=== PATIENT | female | born 1930 ===

== ENCOUNTER 2018-04-09 16:37 | Emergency (ER) | payer SELFPAY ==
[2018-04-09] MEDS ORDERED: DIPHTH,PERTUSS(ACELL),TET 0.5 ML DISP.SYRIN IM ONE (16:57)
--- NOTE | 2018-04-09 16:57 | PDOC ---
History of Present Illness - General History Source: Patient Exam Limitations: No Limitations <Deisy Locke - Last Filed: 04/09/18 16:52> - History of Present Illness Initial Comments: 04/09/18 16:57 Patient is an 87 female with PMHx of diabetes, HLD, hypothyroidism, CAD, who was BIBA and presents with right mojica laceration. Patient was at the [facility] movie theater with her senior group today. She states that as she was getting on the bus, she wasn't able to fully raise her right leg and scraped it, sustaining a superficial cut her to her right mojica. She is currently on Plavix. She denies hitting her head or losing consciousness. Up to date on tetanus (last year) 04/09/18 17:02 <Kalie Newton - Last Filed: 04/09/18 17:03> - General Chief Complaint: Laceration Stated Complaint: LACERATION TO RIGTH [place] Time Seen by Provider: 04/09/18 16:39 Past History <Deisy Locke - Last Filed: 04/09/18 16:52> <Kalie Newton - Last Filed: 04/09/18 17:03> - Past Medical History Allergies/Adverse Reactions: Allergies Allergy/AdvReac Type Severity Reaction Status Date / Time No Known Allergies Allergy Verified 04/09/18 16:51 Home Medications: Ambulatory Orders Amlodipine Besylate 0 mg PO DAILY 04/09/18 Clopidogrel Bisulfate [Plavix] 75 mg PO DAILY 04/09/18 Levothyroxine [Synthroid -] 0 mcg PO DAILY 04/09/18 Sertraline HCl [Zoloft] 25 mg PO ASDIR 04/09/18 Simvastatin 20 mg PO DAILY 04/09/18 Review of Systems - Review of Systems Comments:: 04/09/18 16:58 GENERAL/CONSTITUTIONAL: No fever or chills. No weakness. HEAD, EYES, EARS, NOSE AND THROAT: No change in vision. No ear pain or discharge. No sore throat. GASTROINTESTINAL: No nausea, vomiting, diarrhea or constipation. GENITOURINARY: No dysuria, frequency, or change in urination. CARDIOVASCULAR: No chest pain or shortness of breath. RESPIRATORY: No cough, wheezing, or hemoptysis. MUSCULOSKELETAL: No joint or muscle swelling or pain. No neck or back pain. SKIN: +right mojica laceration NEUROLOGIC: No headache, vertigo, loss of consciousness, or change in strength/ sensation. ENDOCRINE: No increased thirst. No abnormal weight change. HEMATOLOGIC/LYMPHATIC: No anemia, easy bleeding, or history of blood clots. ALLERGIC/IMMUNOLOGIC: No hives or skin allergy. <Kalie Newton - Last Filed: 04/09/18 17:03> *Physical Exam - Physical Exam Comments: 04/09/18 16:59 GENERAL: Awake, alert, and fully oriented, in no acute distress HEAD: atraumatic EYES: PERRLA, EOMI, sclera anicteric, conjunctiva clear ENT: Auricles normal inspection, nares patent, Moist mucosa NECK: Normal ROM, supple, no lymphadenopathy, JVD, or masses LUNGS: Breath sounds equal, clear to auscultation bilaterally. No wheezes, and no crackles HEART: Regular rate and rhythm, normal S1 and S2, no murmurs, rubs or gallops ABDOMEN: Soft, nontender. No guarding, no rebound. No masses. Pelvis is stable. EXTREMITIES: FROM. no extremities tenderness. No edema. No clubbing or cyanosis. No cords or erythema. NEUROLOGICAL: GCS 15. Moving all extremities. Normal speech SKIN: Right anterior mojica has a skin evulsion 4 by 4 cm. <Kalie Newton - Last Filed: 04/09/18 17:03> Medical Decision Making - Medical Decision Making 04/09/18 16:52 87 yo F with h/o HTN HLD, DM CAD on plavix here s/p right knee injury. was at movie, banged mojica while getting into the bus, sustaining laceration. did not fall, did not hit her head. was having hard time lifting leg into the bus. last tetanus unknown. tylenol for pain. skin avulsion on exam, unable to suture. will apply pressure dressing, sterile and bacitracin. dc home. <Deisy Locke - Last Filed: 04/09/18 16:52> *DC/Admit/Observation/Transfer - Discharge Dispostion Decision to Admit order: No <Deisy Locke - Last Filed: 04/09/18 16:52> - Attestations Scribe Attestion: 04/09/18 17:02 Documentation prepared by Kalie Newton, acting as medical transcriber for Deisy Locke MD. <Kalie Newton - Last Filed: 04/09/18 17:03> Diagnosis at time of Disposition: Avulsion, skin - Discharge Dispostion Disposition: HOME Condition at time of disposition: Improved - Patient Instructions Printed Discharge Instructions: DI for Abrasion Additional Instructions: you should apply bacitracin twice daily, cover with non stick dressing. return for redness, swelling, fever, drainage or any concerns. follow up with your primary doctor.
[2018-04-09 17:01] VITALS: BP 140/54; PULSE 72; TEMP 98; BMI 26.5
== END 2018-04-09 17:20 | disposition home or self-care (01) ==
LOC: FER 16:37
DX: S81.811A Laceration without foreign body, right lower leg, initial encounter (principal); W22.8XXA Striking against or struck by other objects, initial encounter; Y93.89 Activity, other specified; Y92.410 Unspecified street and highway as the place of occurrence of the external cause; I10 Essential (primary) hypertension; E11.9 Type 2 diabetes mellitus without complications; E78.5 Hyperlipidemia, unspecified; Z79.01 Long term (current) use of anticoagulants
CPT/HCPCS: 99282-25